=== PATIENT | male | born 1945 | race Hispanic/Latino ===

== ENCOUNTER → 2020-03-15 | Day surgery (SDC) | payer OTHER ==
[~2020-03-15] MED LIST: ALBUTEROL0.63 MG/3 NEB; ALLOPURINOL300 MG PO; BACLOFEN10 MG PO; DIGOXIN125 MCG PO; DIOVAN80 MG PO; FLOMAX0.4 MG PO; FUROSEMIDE40 MG PO; JENTADUETO 2.51 EAC2 PO; KLOR-CON M1515 MEQ PO; METOLAZONE5 MG PO; METOPROLOL TAR100 MG PO; OMEGA 3 1,0001 EACH PO; OR PHACO EYE KIT ONE; PREOP PHACO EYE KIT ONE; PROAIR RESPICL90 MCG INH; ROSUVASTATIN CA40 MG PO; SYMBICORT 16010.2 GM INH; TOUJEO SQ; XARELTO20 MG PO
[2020-03-15 13:55] LABS: BASOPHILS % 0.3 % (0.0-1.0); EOSINOPHILS # (AUTO) 0.1 (0.0-0.4); EOSINOPHILS % 0.8 % (0.0-6.0); HEMATOCRIT 37.2 % (38.2-49.6); HEMOGLOBIN 11.1 g/dL (14.0-18.0); LYMPHOCYTES # (AUTO) 1.7 (1.0-3.2); LYMPHOCYTES % 15.4 % (18.0-39.1); MEAN CORPUSCULAR HEMOGLOBIN 23.7 pg (28-32); MEAN CORPUSCULAR HGB CONC 29.8 g/dL (31-35); MEAN CORPUSCULAR VOLUME 79.5 fL (81-99); MONOCYTES # (AUTO) 1.1 (0.2-0.8); MONOCYTES % 9.8 % (4.4-11.3); NEUTROPHILS # (AUTO) 7.8 (2.1-6.9); NEUTROPHILS % 73.1 % (38.7-80.0); PLATELET COUNT 222 x10e3/uL (140-360); RED BLOOD COUNT 4.68 x10e6/uL (4.3-5.7); RED CELL DISTRIBUTION WIDTH 18.7 % (11.7-14.4)
[2020-03-15 15:50] VITALS: BP 152/93
[2020-03-15 21:51] LABS: LYMPHOCYTES % (MANUAL) 13 % (19-48); METAMYELOCYTES % (MANUAL) 1 % (0-0); MONOCYTES % (MANUAL) 14 % (3.4-9.0); MYELOCYTES % (MANUAL) 1 % (0-0); NEUTROPHILS % (MANUAL) 71 % (40-74); PLATELET ESTIMATE ADEQUATE; PLATELET MORPHOLOGY COMMENT NORMAL; RBC MORPHOLOGY COMMENT NORMAL
== END | disposition home or self-care (01) ==
LOC: OR 11:22
PROVIDERS: ATTEND Ophthalmology
DX: H25.12 Age-related nuclear cataract, left eye (principal); I48.91 Unspecified atrial fibrillation; M19.90 Unspecified osteoarthritis, unspecified site; M54.9 Dorsalgia, unspecified; J44.9 Chronic obstructive pulmonary disease, unspecified; I25.2 Old myocardial infarction; I10 Essential (primary) hypertension; E78.5 Hyperlipidemia, unspecified; E11.9 Type 2 diabetes mellitus without complications; I83.90 Asymptomatic varicose veins of unspecified lower extremity; Z88.0 Allergy status to penicillin; Z01.812 Encounter for preprocedural laboratory examination; Z11.59 Encounter for screening for other viral diseases; Z79.02 Long term (current) use of antithrombotics/antiplatelets; Z79.4 Long term (current) use of insulin; Z79.84 Long term (current) use of oral hypoglycemic drugs; Z87.891 Personal history of nicotine dependence
CPT/HCPCS: 36415; 66984; 82948; 85025; 87635; V2632

== ENCOUNTER → 2020-03-29 | Day surgery (SDC) | payer MEDICARE, OTHER ==
[2020-03-29 14:05] VITALS: BP 136/85
--- NOTE | 2020-03-30 11:57 | Operative Report ---
DATE OF PROCEDURE: 03/29/2020 SURGEON: Janak London MD PREOPERATIVE DIAGNOSES: 1. Visually significant cataract of the right eye. 2. Poor dilation of right eye. POSTOPERATIVE DIAGNOSES: 1. Visually significant cataract of the right eye. 2. Poor dilation of right eye. PROCEDURES: Complicated phacoemulsification with posterior chamber intraocular lens. ANESTHESIA: MAC. COMPLICATIONS: None. LENS: Scott SN60WF 24.0 diopter lens. DESCRIPTION OF PROCEDURE: The patient was taken to the operating room. The patient had tetracaine 0.5% drops placed on the right eye. The patient's eye was prepped and draped in usual sterile ophthalmic way. A lid speculum was placed in the eye and a sideport incision was made. A 0.2 mL of 1% lidocaine preservative-free was injected in the anterior chamber. Viscoelastic was placed in the anterior chamber and a keratome was used to make a temporal clear corneal incision. Due to poor dilation a Malyugin ring used to dilate the pupil and centered well. A cystotome and Utrata forceps were used to create an anterior capsulorrhexis without complication. Hydrodissection and hydrodelineation were then performed, and a good fluid wave was noted. Phacoemulsification probe was placed in the eye and the nucleus was phacoemulsified using divide and conquer technique. Irrigation/aspiration handpiece was then used to remove the residual cortical material. Viscoelastic was placed in the capsular bag and an Scott SN60WF 24.0 lens was placed in the bag without complications. The Malyugin ring was then removed. The irrigation/aspiration handpiece was used to remove any residual viscoelastic material from the eye. Miostat was injected in the anterior chamber and the wound was checked to make sure there was no evidence of leakage. Two drops of Vigamox along with Maxitrol ointment patch and Barnes shield placed on the eye. The patient tolerated the procedure well, was taken to recovery room in good condition. The patient will be seen in my office tomorrow. Janak London MD SES/MODL /[id number]
== END | disposition home or self-care (01) ==
LOC: OR 09:40
PROVIDERS: ATTEND Ophthalmology
DX: H25.11 Age-related nuclear cataract, right eye (principal); H57.09 Other anomalies of pupillary function; I10 Essential (primary) hypertension; I25.10 Atherosclerotic heart disease of native coronary artery without angina pectoris; I48.91 Unspecified atrial fibrillation; E78.5 Hyperlipidemia, unspecified; E66.9 Obesity, unspecified; E11.9 Type 2 diabetes mellitus without complications; I73.9 Peripheral vascular disease, unspecified; F17.210 Nicotine dependence, cigarettes, uncomplicated; Z88.0 Allergy status to penicillin; Z01.812 Encounter for preprocedural laboratory examination; Z11.59 Encounter for screening for other viral diseases; Z79.02 Long term (current) use of antithrombotics/antiplatelets; Z79.4 Long term (current) use of insulin; Z79.84 Long term (current) use of oral hypoglycemic drugs
CPT/HCPCS: 36415; 66982; 82948; U0002; V2632